=== PATIENT | female | born 1995 | race Hispanic/Latino ===

== ENCOUNTER 2017-11-03 15:11 | Emergency (ER) | payer OTHER, SELFPAY ==
[2017-11-03 16:38] LABS: Absolute Lymphocytes (CBC) 0.8 K/uL (0.7-4.9); Absolute Monocytes 0.6 K/uL (0.1-1.3); Absolute Neutrophil 13.7 K/uL (1.8-8.0); Basophils % 0.1 % (0-1.3); Eosinophils % 0.2 % (0-4.4); Lymphocytes % 5.4 % (15.3-44.8); MCH 22.6 pg (27.0-35.0); MCV 71.3 fL (80-100); MPV 7.7 fL (7.6-11.3); Monocytes % 3.7 % (3.3-12.3); RBC Red Blood Cell Count 4.35 M/uL (3.86-4.86)
[2017-11-03 16:49] LABS: Bicarbonate 20 mEq/L (21-31); Glucose Level 82 mg/dL (65-120); Potassium 3.2 mEq/L (3.6-5.0); Sodium Level 131 mEq/L (135-145)
[2017-11-03 16:50] LABS: BUN Blood Urea Nitrogen 6 mg/dL (6-20)
[2017-11-03 16:52] LABS: Urine Blood TRACE (NEG); Urine Glucose NEGATIVE (NEG); Urine Protein NEGATIVE (NEG); Urine pH 6.5 (5.0-7.0)
[2017-11-03] MEDS ORDERED: NA CHLORIDE 0.9% 1,000 ML ONE (17:10)
[2017-11-03 17:38] LABS: Urine Bacteria <20 /HPF (<20); Urine Culture Reflex Order REFLEXED; Urine Mucus NS /HPF (NONE SEEN); Urine RBC <5 /HPF (NONE SEEN)
[2017-11-03 17:40] LABS: Blood Morphology Comment NOT SEEN (NOT SEEN); Platelet Estimate ADEQ
--- NOTE | 2017-11-03 17:59 | ER ---
Nurse's Notes [facility] Name: Uriel Pisano Age: 22 yrs Sex: Female : 1995 Arrival Date: 11/03/2017 Time: 15:12 Bed 20 Private MD: Diagnosis: 13 weeks gestation of Presentation: 11/03 15:28 Presenting complaint: Patient states: Patient reports pelvic pain with brown vaginal aj discharge with clots last night. Transition of care: patient was not received from another setting of care. Onset of symptoms was November 03, 2017. Initial Sepsis Screen: Does the patient meet any 2 criteria? No. Patient's initial sepsis screen is negative. Does the patient have a suspected source of infection? No. Patient's initial sepsis screen is negative. Care prior to arrival: None. 15:28 Method Of Arrival: Ambulatory aj 15:28 Acuity: HERMELINDO 3 aj Triage Assessment: 15:30 General: Appears in no apparent distress. uncomfortable, Behavior is calm, cooperative, aj appropriate for age. Pain: Complains of pain in suprapubic area Pain currently is 7 out of 10 on a pain scale. Neuro: Level of Consciousness is awake, alert, obeys commands, Oriented to person, place, time, situation. Respiratory: Airway is patent Respiratory effort is even, unlabored, Respiratory pattern is regular, symmetrical. : Reports pain in suprapubic area vaginal bleeding that is brown, with clots. Derm: Skin is intact, is healthy with good turgor, Skin is pink, warm \T\ dry. normal. 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 - Social history:: Smoking status: Patient/guardian denies using tobacco. Screenin:33 Abuse screen: Denies threats or abuse. Nutritional screening: No deficits noted. ae1 Tuberculosis screening: No symptoms or risk factors identified. Fall Risk None identified. Assessment: 16:33 General: Appears in no apparent distress. uncomfortable, slender, well groomed, ae1 Behavior is cooperative, anxious. Pain: Complains of pain in suprapubic area, right lower quadrant and left lower quadrant. Neuro: Level of Consciousness is awake, alert, obeys commands, Oriented to person, place, time, situation. Cardiovascular: Heart tones S1 S2 present Patient's skin is warm and dry. Respiratory: Airway is patent Respiratory effort is even, unlabored, Respiratory pattern is regular, symmetrical, Breath sounds are clear bilaterally. GI: Abdomen is round Bowel sounds present X 4 quads. Abd is soft Abdomen is tender to palpation in right lower quadrant. : Reports discharge, vaginal bleeding that is brown, with clots, moderate flow. EENT: No signs and/or symptoms were reported regarding the EENT system. Derm: Skin is normal. Musculoskeletal: No signs and/or symptoms reported regarding the musculoskeletal system. 18:13 Reassessment: Patient and/or family updated on plan of care and expected duration. Pain ae1 level reassessed. Patient awaiting Rhogam injection to be delivered to ED. Patient states feeling better. 19:00 Reassessment: RECD REPORT FROM RICCO POLLACK. 22YO HF P/W VAG BLEEDING. DISPO ON HOLD bp PENDING RHOGAM. 20:15 Reassessment: PT D/C HOME AMBULATORY WITH FAMILY, DX WITH 13 WK . bp Vital Signs: 15:30 BP 121 / 82; Pulse 111; Resp 20; Temp 98.6; Pulse Ox 99% on R/A; Weight 48.99 kg; aj Height 5 ft. 5 in. (165.10 cm); Pain 7/10; 16:36 BP 121 / 71; Pulse 95; Resp 17; Pulse Ox 100% on R/A; ae1 18:45 BP 116 / 68; Pulse 96; Resp 18; Pulse Ox 100% on R/A; ae1 15:30 Body Mass Index 17.97 (48.99 kg, 165.10 cm) aj ED Course: 15:12 Patient arrived in ED. as 15:30 Triage completed. aj 15:30 Arm band placed on left wrist. Patient placed in an exam room. aj 16:02 Malena Teran [facility]-C [facility]. kb 16:02 Emmanuel Felipe MD is Attending Physician. kb 16:32 Ricco Morillo, RN is Primary Nurse. ae1 16:32 Inserted saline lock: 22 gauge in right antecubital area, using aseptic technique. ae1 Blood collected. 16:33 Placed in gown. Bed in low position. Call light in reach. Side rails up X2. Adult w/ ae1 patient. Pulse ox on. NIBP on. Warm blanket given. 16:45 Urine collected: clean catch specimen, clear. [facility] 17:56 1St Trimest Single 1St Fetus In Process Unspecified. EDMS 17:59 Patient moved back from ultrasound. ae1 20:13 Rhogam Sent. bp 20:16 No provider procedures requiring assistance completed. IV discontinued, intact, bp bleeding controlled, No redness/swelling at site. Pressure dressing applied. Administered Medications: 17:13 Drug: NS 0.9% 1000 ml Route: IV; Rate: 1000 ml; Site: right antecubital; ae1 19:50 Drug: RhoGAM (Human) 300 mcg Route: IM; Site: left gluteus; bp 20:15 Follow up: Response: No adverse reaction bp Outcome: 17:58 Discharge ordered by MD. kb 20:15 Discharged to home ambulatory. bp 20:15 Condition: stable 20:15 Discharge instructions given to patient, Instructed on discharge instructions, follow up and referral plans. Demonstrated understanding of instructions, follow-up care. 20:16 Patient left the ED. bp Signatures: Dispatcher [employer] EDIA Malena Teran, DIRECTOR MARKET RESEARCH-C DIRECTOR MARKET RESEARCH-CkLashell Prery RN RN aj Martinez, Amelia as Ricco Morillo, RN RN [facility] Corie Vasquez [facility] Guilherme Pop, JAKI RN bp Corrections: (The following items were deleted from the chart) 20:14 20:14 RhoGAM (Human) 300 mcg IM in left gluteus bp bp
--- NOTE | 2017-11-03 17:59 | EDPHYS ---
Physician Documentation [facility] Name: Uriel Pisano Age: 22 yrs Sex: Female : 1995 Arrival Date: 11/03/2017 Time: 15:12 Bed 20 Private MD: ED Physician Emmanuel Felipe HPI: 11/03 16:41 This 22 yrs old Female presents to ER via Ambulatory with complaints of Pelvic kb Pain - 12 Weeks , Vaginal Discharge. 16:41 The patient presents to the emergency department with abdominal pain, of the abdomen kb diffusely, that started yesterday, described as crampy, vaginal bleeding, described as spotting. course: care: none, Leakage of Fluid: none appreciated, Ultrasound: the patient has not had an ultrasound, Risk/complications: no obvious risks or complications are appreciated. Previous pregnancies: in previous pregnancies patient has had. Associated signs and symptoms: Pertinent positives: abdominal pain, vaginal bleeding. The patient has not experienced similar symptoms in the past. The patient has not recently seen a physician. 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 - Social history:: Smoking status: Patient/guardian denies using tobacco. ROS: 16:41 Constitutional: Negative for fever, chills, and weight loss, Cardiovascular: Negative kb for chest pain, palpitations, and edema, Respiratory: Negative for shortness of breath, cough, wheezing, and pleuritic chest pain, Back: Negative for injury and pain, MS/Extremity: Negative for injury and deformity, Skin: Negative for injury, rash, and discoloration, Neuro: Negative for headache, weakness, numbness, tingling, and seizure. 16:41 Abdomen/GI: Positive for abdominal cramps. 16:41 : Positive for vaginal bleeding. Exam: 16:41 Constitutional: This is a well developed, well nourished patient who is awake, alert, kb and in no acute distress. Head/Face: Normocephalic, atraumatic. Chest/axilla: Normal chest wall appearance and motion. Nontender with no deformity. No lesions are appreciated. Cardiovascular: Regular rate and rhythm with a normal S1 and S2. No gallops, murmurs, or rubs. Normal PMI, no JVD. No pulse deficits. Respiratory: Lungs have equal breath sounds bilaterally, clear to auscultation and percussion. No rales, rhonchi or wheezes noted. No increased work of breathing, no retractions or nasal flaring. Skin: Warm, dry with normal turgor. Normal color with no rashes, no lesions, and no evidence of cellulitis. MS/ Extremity: Pulses equal, no cyanosis. Neurovascular intact. Full, normal range of motion. Neuro: Awake and alert, GCS 15, oriented to person, place, time, and situation. Cranial nerves II-XII grossly intact. Motor strength 5/5 in all extremities. Sensory grossly intact. Cerebellar exam normal. Normal gait. 17:27 Abdomen/GI: Inspection: abdomen appears normal, Bowel sounds: normal, in all quadrants, kb Palpation: soft, in all quadrants, mild abdominal tenderness, in all quadrants. Vital Signs: 15:30 BP 121 / 82; Pulse 111; Resp 20; Temp 98.6; Pulse Ox 99% on R/A; Weight 48.99 kg; aj Height 5 ft. 5 in. (165.10 cm); Pain 7/10; 16:36 BP 121 / 71; Pulse 95; Resp 17; Pulse Ox 100% on R/A; ae1 18:45 BP 116 / 68; Pulse 96; Resp 18; Pulse Ox 100% on R/A; ae1 15:30 Body Mass Index 17.97 (48.99 kg, 165.10 cm) aj MDM: 16:02 Patient medically screened. kb 16:41 Data reviewed: vital signs, nurses notes. Data interpreted: Pulse oximetry: on room air kb is 100 %. Interpretation: normal. 17:56 Counseling: I had a detailed discussion with the patient and/or guardian regarding: the kb historical points, exam findings, and any diagnostic results supporting the discharge/admit diagnosis, lab results, radiology results, the need for outpatient follow up, an OB/Gyne specialist, to return to the emergency department if symptoms worsen or persist or if there are any questions or concerns that arise at home. 11/03 16:03 Order name: Quantitative Hcg; Complete Time: 17:26 kb 11/03 16:03 Order name: Abo/rh Typing 11/03 16:03 Order name: Basic Metabolic Panel; Complete Time: 17:26 kb 11/03 16:03 Order name: CBC with Diff; Complete Time: 17:54 kb 11/03 16:40 Order name: Manual Differential; Complete Time: 17:54 [facility] 11/03 16:45 Order name: Urine Dipstick--Ancillary (enter results); Complete Time: 16:52 mw2 11/03 16:45 Order name: Urine --Ancillary (enter results); Complete Time: 16:52 2 11/03 16:53 Order name: Urine Microscopic Only; Complete Time: 17:39 kb 11/03 17:39 Order name: Urine Culture [facility] 11/03 16:03 Order name: Urine Test (obtain specimen); Complete Time: 16:39 kb 11/03 16:03 Order name: IV Saline Lock; Complete Time: 16:32 kb 11/03 16:03 Order name: Labs collected and sent; Complete Time: 16:32 kb 11/03 16:03 Order name: NPO; Complete Time: 16:32 kb 11/03 16:03 Order name: Urine Dipstick-Ancillary (obtain specimen); Complete Time: 16:39 kb 11/03 17:47 Order name: 1St Trimest Single 1St Fetus; Complete Time: 18:21 [facility] 11/03 18:58 Order name: Rh Typing [facility] 11/03 18:58 Order name: Antibody Screen [facility] 11/03 18:58 Order name: Fetalscreen [facility] 11/03 18:58 Order name: Cord Rh type [facility] 11/03 18:58 Order name: Rhogam EDSD Administered Medications: 17:13 Drug: NS 0.9% 1000 ml Route: IV; Rate: 1000 ml; Site: right antecubital; ae1 19:50 Drug: RhoGAM (Human) 300 mcg Route: IM; Site: left gluteus; bp 20:15 Follow up: Response: No adverse reaction bp Disposition: 11/03/17 17:58 Discharged to Home. Impression: 13 weeks gestation of . - Condition is Stable. - Discharge Instructions: Second Trimester of , [id number]. - Medication Reconciliation Form, Thank You Letter, Antibiotic Education, Prescription Opioid Use form. - Follow up: Emergency Department; When: As needed; Reason: Worsening of condition. Follow up: Private Physician; When: 2 - 3 days; Reason: Recheck today's complaints, Continuance of care, Re-evaluation by your physician. Addendum: 11/06/2017 19:02 Co-signature as Attending Physician, Emmanuel Felipe MD. r n Signatures: Dispatcher [employer] EDSD Malena Teran, ACTUARY-C ACTUARY-Lashell Viera RN Emmanuel Timmons MD MD rn Elliott, Andrea, RN RN aeGuilherme Prince RN RN bp Corrections: (The following items were deleted from the chart) 11/03 17:27 16:41 Constitutional: This is a well developed, well nourished patient who is awake, kb alert, and in no acute distress. Head/Face: Normocephalic, atraumatic. Chest/axilla: Normal chest wall appearance and motion. Nontender with no deformity. No lesions are appreciated. Cardiovascular: Regular rate and rhythm with a normal S1 and S2. No gallops, murmurs, or rubs. Normal PMI, no JVD. No pulse deficits. Respiratory: Lungs have equal breath sounds bilaterally, clear to auscultation and percussion. No rales, rhonchi or wheezes noted. No increased work of breathing, no retractions or nasal flaring. Abdomen/GI: Soft, non-tender, with normal bowel sounds. No distension or tympany. No guarding or rebound. No evidence of tenderness throughout. Skin: Warm, dry with normal turgor. Normal color with no rashes, no lesions, and no evidence of cellulitis. MS/ Extremity: Pulses equal, no cyanosis. Neurovascular intact. Full, normal range of motion. Neuro: Awake and alert, GCS 15, oriented to person, place, time, and situation. Cranial nerves II-XII grossly intact. Motor strength 5/5 in all extremities. Sensory grossly intact. Cerebellar exam normal. Normal gait. kb 17:47 17:27 Transvaginal Ob+US.RAD.BRZ ordered. EDMS EDMS 18:57 18:56 Rh Typing ordered. EDMS EDMS 18:57 18:56 Antibody Screen ordered. EDMS EDMS 18:57 18:56 Fetalscreen ordered. EDMS EDMS 18:57 18:56 Cord Rh type ordered. EDMS EDMS 18:57 18:56 Rhogam ordered. EDMS EDMS
--- NOTE | 2017-11-03 18:11 | RAD REPORT ---
EXAM DESCRIPTION: US - 1St Trimest Single 1St Fetus - 11/03/2017 5:55 pm CLINICAL HISTORY: with abdominal pain and vaginal bleeding COMPARISON: None FINDINGS: Single live intrauterine is in breech presentation. The placenta is anterior. Am niotic fluid is normal. Cardiac activity 165 beats per minute. Hibernia-rump length 6.7 centimeters. Cervix 3.5 centimeters IMPRESSION: Single live intrauterine in breech presentation. The estimated gestational age 13 weeks 0 days GISELE 05/11/2018 An approximately 5 weeks an ultrasound should be obtained to assess the survey
[2017-11-03 20:29] VITALS: O2SAT 100
[2017-11-03 20:30] VITALS: TEMP 98.6
[2017-11-03 20:31] VITALS: BP 116/68
== END 2017-11-03 20:16 | disposition home or self-care (01) ==
LOC: ER 15:11
PROC: 3E0234Z Introduction of Serum, Toxoid and Vaccine into Muscle, Percutaneous Approach (ICD-10-PCS; principal; 2017-11-03)
DX: O26.891 Other specified pregnancy related conditions, first trimester (principal); Z3A.12 12 weeks gestation of pregnancy
CPT/HCPCS: 36415; 76801; 80048; 81003; 81015; 81025; 84702; 85025; 86850; 86900; 86901; 87086; 87088; 96372; 99284; J2790; J7030

== ENCOUNTER 2017-11-18 11:50 | Emergency (ER) | payer OTHER ==
[2017-11-18] MEDS ORDERED: NA CHLORIDE 0.9% 1,000 ML ONE (12:11)
--- NOTE | 2017-11-18 13:03 | RAD REPORT ---
EXAM DESCRIPTION: US - Pelvis Complete - 11/18/2017 12:27 pm CLINICAL HISTORY: , passing large clots COMPARISON: None. TECHNIQUE: Transabdominal pelvic sonography was performed. FINDINGS: Uterus measures 9.6 x 6.6 x 7.4 cm. No myometrial mass. Both ovaries are identified and no rmal. No adnexal mass. No abnormal fluid collection in the cul-de-sac. Within the endometrium there is a large 3.5 centimeter heterogeneous collection all believed to be he morrhagic material. No retained tissue or placental tissue identifiable. IMPRESSION: No intrauterine gestation or gestational sac. Large collection of hemorrhagic material in the endometrial cavity with no retained products or placental tissue identifiable. No ovarian or adnexal abnormality.
[2017-11-18 13:36] LABS: Absolute Lymphocytes (CBC) 1.5 K/uL (0.7-4.9); Absolute Monocytes 0.3 K/uL (0.1-1.3); Absolute Neutrophil 6.9 K/uL (1.8-8.0); Basophils % 0.5 % (0-1.3); Eosinophils % 0.8 % (0-4.4); Lymphocytes % 16.9 % (15.3-44.8); MCH 23.2 pg (27.0-35.0); MCV 72.3 fL (80-100); MPV 7.5 fL (7.6-11.3); Monocytes % 3.9 % (3.3-12.3); RBC Red Blood Cell Count 4.15 M/uL (3.86-4.86)
--- NOTE | 2017-11-18 13:51 | ER ---
Nurse's Notes [facility] Name: Uriel Pisano Age: 22 yrs Sex: Female : 1995 Arrival Date: 11/18/2017 Time: 11:53 Bed 4 Private MD: Diagnosis: Spontaneous -15 weeks;Pelvic and perineal pain;Anemia, unspecified Presentation: 11/18 11:57 Presenting complaint: Patient states: Passed a large blood clot this AM followed by aj multiple smaller clots. Transition of care: patient was not received from another setting of care. Onset of symptoms was November 18, 2017. Initial Sepsis Screen: Does the patient meet any 2 criteria? No. Patient's initial sepsis screen is negative. Does the patient have a suspected source of infection? No. Patient's initial sepsis screen is negative. Care prior to arrival: None. 11:57 Method Of Arrival: Ambulatory aj 11:57 Acuity: HERMELINDO 3 aj Triage Assessment: 12:00 General: Appears in no apparent distress. comfortable, Behavior is calm, cooperative, aj appropriate for age. Pain: Denies pain. Neuro: Level of Consciousness is awake, alert, obeys commands, Oriented to person, place, time, situation, Appropriate for age. Respiratory: Airway is patent Respiratory effort is even, unlabored, Respiratory pattern is regular, symmetrical. Derm: Skin is intact, is healthy with good turgor, Skin is pink, warm \T\ dry. normal. 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 - Social history:: Smoking status: Patient/guardian denies using tobacco. - Family history:: not pertinent. Screenin:00 Abuse screen: Denies threats or abuse. Denies injuries from another. Nutritional hb screening: No deficits noted. Tuberculosis screening: No symptoms or risk factors identified. Fall Risk None identified. Assessment: 12:05 General: see triage assessment. hb 12:45 Reassessment: Patient appears in no apparent distress at this time. No changes from hb previously documented assessment. Patient and/or family updated on plan of care and expected duration. Pain level reassessed. Patient is alert, oriented x 3, equal unlabored respirations, skin warm/dry/pink. 13:45 Reassessment: Patient appears in no apparent distress at this time. No changes from previously documented assessment. Patient and/or family updated on plan of care and expected duration. Pain level reassessed. Patient is alert, oriented x 3, equal unlabored respirations, skin warm/dry/pink. 14:43 Reassessment: Patient appears in no apparent distress at this time. Patient and/or hb family updated on plan of care and expected duration. Pain level reassessed. Patient is alert, oriented x 3, equal unlabored respirations, skin warm/dry/pink. Discharge ordered, awaiting rhogam from pharmacy. 15:15 Reassessment: Pt received RhoGAM at previous ED visit, medication cancelled per Dr. buffy Flores. Vital Signs: 12:00 BP 109 / 86; Pulse 92; Resp 18; Temp 98.4; Pulse Ox 100% on R/A; Weight 49.44 kg; aj Height 4 ft. 11 in. (149.86 cm); 13:00 BP 112 / 68; Pulse 88; Resp 15; Pulse Ox 100% on R/A; hb 14:00 BP 106 / 74; Pulse 75; Resp 15; Pulse Ox 100% on R/A; hb 12:00 Body Mass Index 22.02 (49.44 kg, 149.86 cm) ED Course: 11:53 Patient arrived in ED. sb2 11:59 Triage completed. aj 12:00 Arm band placed on right wrist. Patient placed in an exam room. aj 12:04 Timbo Flores MD is Attending Physician. beka 12:28 Pelvis Complete In Process Unspecified. EDMS 12:30 Patient has correct armband on for positive identification. Placed in gown. Bed in low hb position. Call light in reach. Side rails up X 1. 13:49 Carly Bruno MD is Referral Physician. beka 14:11 Danni Jones, RN is Primary Nurse. 15:00 Assist provider with pelvic exam: Set up pelvic tray. Performed by Timbo Flores MD Patient tolerated well. 15:00 IV discontinued, intact, bleeding controlled, No redness/swelling at site. Pressure hb dressing applied. Administered Medications: 13:27 Drug: NS 0.9% 1000 ml Route: IV; Rate: 1 bolus; Site: left antecubital; sg 15:36 Drug: METHERgine 0.2 mg Route: IM; Site: left deltoid; hb 15:37 Not Given (Pt received 11/03/17): Rho D Immune Globulin 300 mcg IM once hb Outcome: 13:50 Discharge ordered by . beka 15:49 Discharged to home ambulatory, with family. hb 15:49 Condition: stable 15:49 Discharge instructions given to patient, Instructed on discharge instructions, follow up and referral plans. medication usage, Demonstrated understanding of instructions, follow-up care, medications, Prescriptions given X 3. 15:59 Patient left the ED. hb Signatures: Dispatcher [employer] EDMS Fady Burciaga RN Lashell Elizabeth RN Timbo Tapia MD MD cha Baxter, Heather, RN RN hb Billeau, Sheri sb2
--- NOTE | 2017-11-18 13:51 | EDPHYS ---
Physician Documentation [facility] Name: Uriel Pisano Age: 22 yrs Sex: Female : 1995 Arrival Date: 11/18/2017 Time: 11:53 Bed 4 Private MD: ED Physician Timbo Flores HPI: 11/18 13:46 This 22 yrs old Female presents to ER via Ambulatory with complaints of VAG beka BLEEDING +PREG 15WKS. 13:46 The patient presents with vaginal bleeding that is moderate. Onset: The beka symptoms/episode began/occurred just prior to arrival, this morning. Modifying factors: The symptoms are alleviated by nothing, the symptoms are aggravated by nothing. The estimated gestational age is 15 weeks. 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 - Social history:: Smoking status: Patient/guardian denies using tobacco. - Family history:: not pertinent. ROS: 13:46 Constitutional: Negative for fever, chills, and weight loss, Eyes: Negative for injury, beka pain, redness, and discharge, ENT: Negative for injury, pain, and discharge, Neck: Negative for injury, pain, and swelling, Cardiovascular: Negative for chest pain, palpitations, and edema, Respiratory: Negative for shortness of breath, cough, wheezing, and pleuritic chest pain, Abdomen/GI: Negative for abdominal pain, nausea, vomiting, diarrhea, and constipation, Back: Negative for injury and pain, MS/Extremity: Negative for injury and deformity, Skin: Negative for injury, rash, and discoloration, Neuro: Negative for headache, weakness, numbness, tingling, and seizure, Psych: Negative for depression, anxiety, suicide ideation, homicidal ideation, and hallucinations, Allergy/Immunology: Negative for hives, rash, and allergies, Endocrine: Negative for neck swelling, polydipsia, polyuria, polyphagia, and marked weight changes, Hematologic/Lymphatic: Negative for swollen nodes, abnormal bleeding, and unusual bruising. 13:46 : Positive for pelvic pain, vaginal bleeding. Exam: 13:46 Constitutional: This is a well developed, well nourished patient who is awake, alert, beka and in no acute distress. Head/Face: Normocephalic, atraumatic. Eyes: Pupils equal round and reactive to light, extra-ocular motions intact. Lids and lashes normal. Conjunctiva and sclera are non-icteric and not injected. Cornea within normal limits. Periorbital areas with no swelling, redness, or edema. ENT: Nares patent. No nasal discharge, no septal abnormalities noted. Tympanic membranes are normal and external auditory canals are clear. Oropharynx with no redness, swelling, or masses, exudates, or evidence of obstruction, uvula midline. Mucous membranes moist. Neck: Trachea midline, no thyromegaly or masses palpated, and no cervical lymphadenopathy. Supple, full range of motion without nuchal rigidity, or vertebral point tenderness. No Meningismus. Chest/axilla: Normal chest wall appearance and motion. Nontender with no deformity. No lesions are appreciated. Cardiovascular: Regular rate and rhythm with a normal S1 and S2. No gallops, murmurs, or rubs. Normal PMI, no JVD. No pulse deficits. Respiratory: Lungs have equal breath sounds bilaterally, clear to auscultation and percussion. No rales, rhonchi or wheezes noted. No increased work of breathing, no retractions or nasal flaring. Abdomen/GI: Soft, non-tender, with normal bowel sounds. No distension or tympany. No guarding or rebound. No evidence of tenderness throughout. Back: No spinal tenderness. No costovertebral tenderness. Full range of motion. Female : Normal external genitalia. Skin: Warm, dry with normal turgor. Normal color with no rashes, no lesions, and no evidence of cellulitis. MS/ Extremity: Pulses equal, no cyanosis. Neurovascular intact. Full, normal range of motion. Neuro: Awake and alert, GCS 15, oriented to person, place, time, and situation. Cranial nerves II-XII grossly intact. Motor strength 5/5 in all extremities. Sensory grossly intact. Cerebellar exam normal. Normal gait. Psych: Awake, alert, with orientation to person, place and time. Behavior, mood, and affect are within normal limits. 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 Vital Signs: 12:00 BP 109 / 86; Pulse 92; Resp 18; Temp 98.4; Pulse Ox 100% on R/A; Weight 49.44 kg; aj Height 4 ft. 11 in. (149.86 cm); 13:00 BP 112 / 68; Pulse 88; Resp 15; Pulse Ox 100% on R/A; hb 14:00 BP 106 / 74; Pulse 75; Resp 15; Pulse Ox 100% on R/A; hb 12:00 Body Mass Index 22.02 (49.44 kg, 149.86 cm) aj MDM: 12:04 Patient medically screened. [facility] 13:48 Data reviewed: vital signs, nurses notes, lab test result(s), EKG, radiologic studies, [facility] ultrasound. 11/18 12:10 Order name: Quantitative Hcg [facility] 11/18 12:10 Order name: Abo/rh Typing [facility] 11/18 12:10 Order name: Basic Metabolic Panel [facility] 11/18 12:10 Order name: CBC with Diff; Complete Time: 13:45 [facility] 11/18 14:00 Order name: Antibody Screen [facility] 11/18 12:10 Order name: Urine Test (obtain specimen); Complete Time: 14:11 [facility] 11/18 12:27 Order name: Pelvis Complete; Complete Time: 13:14 [facility] 11/18 14:00 Order name: Rhogam [facility] 11/18 15:27 Order name: Antibody Identification [facility] 11/18 12:10 Order name: IV Saline Lock; Complete Time: 14:11 [facility] 11/18 12:10 Order name: Labs collected and sent; Complete Time: 14:11 [facility] 11/18 12:10 Order name: NPO; Complete Time: 14:11 [facility] 11/18 12:10 Order name: Urine Dipstick-Ancillary (obtain specimen); Complete Time: 14:11 [facility] 11/18 13:26 Order name: Pelvic Exam Setup; Complete Time: 13:31 [facility] Administered Medications: 13:27 Drug: NS 0.9% 1000 ml Route: IV; Rate: 1 bolus; Site: left antecubital; sg 15:36 Drug: METHERgine 0.2 mg Route: IM; Site: left deltoid; hb 15:37 Not Given (Pt received 11/03/17): Rho D Immune Globulin 300 mcg IM once hb Disposition: 11/18/17 13:50 Discharged to Home. Impression: Spontaneous - 15 weeks, Pelvic and perineal pain, Anemia, unspecified. - Condition is Stable. - Discharge Instructions: Anemia, Nonspecific, Pelvic Pain, Female, Miscarriage, Pelvic Pain, Female, [id number]. - Prescriptions for Methergine 0.2 mg Oral tablet - take 1 tablet by ORAL route every 6 hours; 5 tablet. Tylenol- Codeine #3 300-30 mg Oral Tablet - take 1 tablet by ORAL route every 4 hours As needed; 24 tablet. Zofran 4 mg Oral Tablet - take 1 tablet by ORAL route every 12 hours As needed; 14 tablet. Vitamin 27- 0.8 mg Oral Tablet - take 1 tablet by ORAL route once daily; 30 tablet. - Medication Reconciliation Form, Thank You Letter, Antibiotic Education, Prescription Opioid Use form. - Follow up: Private Physician; When: 2 - 3 days; Reason: Recheck today's complaints, Continuance of care, Re-evaluation by your physician. Follow up: Carly Bruno MD; When: 2 - 3 days; Reason: Recheck today's complaints, Continuance of care, Re-evaluation by your physician. - Problem is new. - Symptoms have improved. Signatures: Dispatcher [employer] [facility] Fady Burciaga RN RN sg Myers, Amanda, RN RN aj Anderson, Corey, MD MD cha Baxter, Heather, RN RN hb Corrections: (The following items were deleted from the chart) 12:27 12:10 OB Limited+US.RAD.BRZ ordered. [facility] EDOH 15:59 13:50 11/18/2017 13:50 Discharged to Home. Impression: Spontaneous - 15 weeks; hb Pelvic and perineal pain; Anemia, unspecified. Condition is Stable. Forms are Medication Reconciliation Form, Thank You Letter, Antibiotic Education, Prescription Opioid Use. Follow up: Private Physician; When: 2 - 3 days; Reason: Recheck today's complaints, Continuance of care, Re-evaluation by your physician. Follow up: Carly Bruno; When: 2 - 3 days; Reason: Recheck today's complaints, Continuance of care, Re-evaluation by your physician. Problem is new. Symptoms have improved. beka
[2017-11-18] MEDS ORDERED: METHYLERGONOVINE 0.2MG/ML AMP IM ONE (14:13)
[2017-11-18 14:18] LABS: BUN Blood Urea Nitrogen 9 mg/dL (6-20); Bicarbonate 25 mEq/L (21-31); Glucose Level 84 mg/dL (65-120); Potassium 3.9 mEq/L (3.6-5.0); Sodium Level 137 mEq/L (135-145)
[2017-11-18 16:07] VITALS: BP 109/86; TEMP 98.4; O2SAT 100
== END 2017-11-18 15:59 | disposition home or self-care (01) ==
LOC: ER 11:50
DX: O03.9 Complete or unspecified spontaneous abortion without complication (principal)
CPT/HCPCS: 36415; 76856; 80048; 84702; 85025; 86850; 86870; 86900; 86901; 96372; 99284; J2210; J7030

== ENCOUNTER 2018-09-26 19:59 | Emergency (ER) | payer OTHER, SELFPAY ==
[2018-09-26 21:10] LABS: Urine Blood TRACE (NEG); Urine Glucose NEGATIVE (NEG); Urine Protein 1+ (NEG); Urine Specific Gravity 1.025 (1.005-1.030)
[2018-09-26 22:07] LABS: Urine Bacteria 20-50 /HPF (<20); Urine Culture Reflex Order REFLEXED
--- NOTE | 2018-09-26 22:25 | ER ---
Nurse's Notes [facility] Name: Uriel Pisano Age: 23 yrs Sex: Female : 1995 Arrival Date: 09/26/2018 Time: 20:00 Bed 12 Private MD: Diagnosis: Cystitis Presentation: 09/26 20:09 Presenting complaint:. Presenting complaint: Patient states: burning with urination X1 ak1 week. 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 Transition of care: patient was not received from another setting of care. Onset of symptoms is unknown. Risk Assessment: Do you want to hurt yourself or someone else? Patient reports no desire to harm self or others. Initial Sepsis Screen: Does the patient meet any 2 criteria? No. Patient's initial sepsis screen is negative. Does the patient have a suspected source of infection? No. Patient's initial sepsis screen is negative. Care prior to arrival: None. 20:09 Method Of Arrival: Ambulatory ak1 20:09 Acuity: HERMELINDO 4 ak1 Triage Assessment: 20:12 General: Appears in no apparent distress. Behavior is calm, cooperative. Pain: ak1 Complains of pain in pelvis. EENT: No signs and/or symptoms were reported regarding the EENT system. Neuro: No deficits noted. Cardiovascular: No deficits noted. Respiratory: No deficits noted. GI: No signs and/or symptoms were reported involving the gastrointestinal system. 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 Derm: No signs and/or symptoms reported regarding the dermatologic system. Musculoskeletal: No signs and/or symptoms reported regarding the musculoskeletal system. 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 - Social history:: Smoking status: Patient/guardian denies using tobacco. - Ebola Screening: : No symptoms or risks identified at this time. Screenin:14 Abuse screen: Denies threats or abuse. Denies injuries from another. Nutritional ak1 screening: No deficits noted. Tuberculosis screening: No symptoms or risk factors identified. Fall Risk None identified. Assessment: 21:03 General: Appears in no apparent distress. comfortable, Behavior is calm, cooperative, aj1 appropriate for age. Neuro: Level of Consciousness is awake, alert, obeys commands. Cardiovascular: Patient's skin is warm and dry. Respiratory: Airway is patent Respiratory effort is even, unlabored, Respiratory pattern is regular, symmetrical. GI: No signs and/or symptoms were reported involving the gastrointestinal system. : Reports burning with urination. EENT: No signs and/or symptoms were reported regarding the EENT system. Derm: No signs and/or symptoms reported regarding the dermatologic system. Skin is pink, warm \T\ dry. normal. Musculoskeletal: No signs and/or symptoms reported regarding the musculoskeletal system. Circulation, motion, and sensation intact. 22:17 Reassessment: Patient appears in no apparent distress at this time. No changes from aj1 previously documented assessment. Patient and/or family updated on plan of care and expected duration. Pain level reassessed. Patient is alert, oriented x 3, equal unlabored respirations, skin warm/dry/pink. Vital Signs: 20:12 BP 124 / 90; Pulse 79; Resp 16; Temp 97.8(TE); Pulse Ox 100% on R/A; Weight 56.7 kg ak1 (R); Height 4 ft. 11 in. (149.86 cm) (R); Pain 7/10; 20:12 Body Mass Index 25.25 (56.70 kg, 149.86 cm) ak1 ED Course: 20:00 Patient arrived in ED. es 20:11 Triage completed. ak1 20:12 Arm band placed on Patient placed in waiting room, Patient notified of wait time. ak1 20:14 Patient has correct armband on for positive identification. ak1 20:59 Lm Turner MD is Attending Physician. 21:02 Jannet Andrade, RN is Primary Nurse. aj1 21:03 No provider procedures requiring assistance completed. aj1 22:03 Urine Microscopic Only Sent. ak1 22:31 Patient did not have IV access during this emergency room visit. ak1 Administered Medications: No medications were administered Outcome: 22:24 Discharge ordered by . 22:31 Discharged to home ambulatory, with family. ak1 22:31 Condition: good 22:31 Discharge instructions given to patient, Instructed on discharge instructions, follow up and referral plans. medication usage, Demonstrated understanding of instructions, follow-up care, medications, Prescriptions given X 1. 22:31 Patient left the ED. ak1 Addendum: 10/01/2018 08:41 Addendum: Culture Results: Positive urine culture. Phone call Attempt #1 attempted to s s call patient for follow up, No answer, Left VM. 10:06 Addendum: Culture Results: Certified letter sent to listed address for patient. s s Signatures: Jannet Andrade RN RN aj1 Mirta Gordon Shelby, RN RN ss Kelsey Rosas RN RN ak1 Lm Turner MD MD
--- NOTE | 2018-09-26 22:25 | EDPHYS ---
Physician Documentation [facility] Name: Uriel Pisano Age: 23 yrs Sex: Female : 1995 Arrival Date: 09/26/2018 Time: 20:00 Bed 12 Private MD: ED Physician Lm Turner HPI: 09/26 22:20 This 23 yrs old Female presents to ER via Ambulatory with complaints of Pain gs With Urination. 22:20 The patient presents with urinary symptoms, dysuria, hematuria. Onset: The gs symptoms/episode began/occurred acutely. Modifying factors: The symptoms are alleviated by nothing, the symptoms are aggravated by nothing. Associated signs and symptoms: Pertinent negatives: fever. Severity of symptoms: At their worst the symptoms were moderate, in the emergency department the symptoms are unchanged. The patient has experienced similar episodes in the past, a few times. 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 - Social history:: Smoking status: Patient/guardian denies using tobacco. - Ebola Screening: : No symptoms or risks identified at this time. ROS: 22:20 All other systems are negative. gs Exam: 22:20 Head/Face: Normocephalic, atraumatic. Eyes: Pupils equal round and reactive to light, gs extra-ocular motions intact. Lids and lashes normal. Conjunctiva and sclera are non-icteric and not injected. Cornea within normal limits. Periorbital areas with no swelling, redness, or edema. ENT: Nares patent. No nasal discharge, no septal abnormalities noted. Tympanic membranes are normal and external auditory canals are clear. Oropharynx with no redness, swelling, or masses, exudates, or evidence of obstruction, uvula midline. Mucous membranes moist. Neck: Trachea midline, no thyromegaly or masses palpated, and no cervical lymphadenopathy. Supple, full range of motion without nuchal rigidity, or vertebral point tenderness. No Meningismus. Chest/axilla: Normal chest wall appearance and motion. Nontender with no deformity. No lesions are appreciated. Cardiovascular: Regular rate and rhythm with a normal S1 and S2. No gallops, murmurs, or rubs. Normal PMI, no JVD. No pulse deficits. Respiratory: Lungs have equal breath sounds bilaterally, clear to auscultation and percussion. No rales, rhonchi or wheezes noted. No increased work of breathing, no retractions or nasal flaring. Abdomen/GI: Soft, non-tender, with normal bowel sounds. No distension or tympany. No guarding or rebound. No evidence of tenderness throughout. Back: No spinal tenderness. No costovertebral tenderness. Full range of motion. Skin: Warm, dry with normal turgor. Normal color with no rashes, no lesions, and no evidence of cellulitis. MS/ Extremity: Pulses equal, no cyanosis. Neurovascular intact. Full, normal range of motion. Neuro: Awake and alert, GCS 15, oriented to person, place, time, and situation. Cranial nerves II-XII grossly intact. Motor strength 5/5 in all extremities. Sensory grossly intact. Cerebellar exam normal. Normal gait. 22:20 Constitutional: The patient appears alert, awake. Vital Signs: 20:12 BP 124 / 90; Pulse 79; Resp 16; Temp 97.8(TE); Pulse Ox 100% on R/A; Weight 56.7 kg ak1 (R); Height 4 ft. 11 in. (149.86 cm) (R); Pain 7/10; 20:12 Body Mass Index 25.25 (56.70 kg, 149.86 cm) ak1 MDM: 21:17 Patient medically screened. gs 22:20 Differential diagnosis: nonspecific abdominal pain, urinary tract infection. Data reviewed: vital signs, nurses notes, lab test result(s). Response to treatment: the patient's symptoms have mildly improved after treatment, and as a result, I will discharge patient. 09/26 20:44 Order name: Urine Dipstick--Ancillary (enter results); Complete Time: 21:17 09/26 20:44 Order name: Urine --Ancillary (enter results); Complete Time: 21:17 09/26 21:17 Order name: Urine Microscopic Only 09/26 21:17 Order name: Urine Microscopic Only; Complete Time: 22: EDAL 09/26 22:08 Order name: Urine Culture EDAL Administered Medications: No medications were administered Disposition: 09/26/18 22:24 Discharged to Home. Impression: Cystitis. - Condition is Stable. - Discharge Instructions: Urinary Tract Infection, Adult. - Prescriptions for Keflex 500 mg Oral Capsule - take 1 capsule by ORAL route every 12 hours for 10 days; 20 capsule. - Medication Reconciliation Form, Thank You Letter, Antibiotic Education, Prescription Opioid Use form. - Follow up: Private Physician; When: 2 - 3 days; Reason: Re-evaluation by your physician. Signatures: Dispatcher [employer] [facility] Kelsey Rosas RN RN ak1 Lm Turner MD MD gs Corrections: (The following items were deleted from the chart) 22:31 22:24 09/26/2018 22:24 Discharged to Home. Impression: Cystitis. Condition is Stable. ak1 Forms are Medication Reconciliation Form, Thank You Letter, Antibiotic Education, Prescription Opioid Use. Follow up: Private Physician; When: 2 - 3 days; Reason: Re-evaluation by your physician. gs
[2018-09-27 00:41] VITALS: BP 124/90; TEMP 97.8; O2SAT 100
== END 2018-09-26 22:31 | disposition home or self-care (01) ==
LOC: ER 19:59
DX: O23.11 Infections of bladder in pregnancy, first trimester (principal); Z3A.01 Less than 8 weeks gestation of pregnancy
CPT/HCPCS: 81003; 81015; 81025; 87077; 87086; 87088; 87186; 99283